=== PATIENT | female | born 1960 | race Two or more races ===

== ENCOUNTER 2017-08-12 20:11 | Emergency (ER) | payer MEDICAID ==
[~2017-08-12] VITALS: Ht 172.7 cm; Wt 103.1 kg
[2017-08-12 20:22] VITALS: BP 133/85
== END 2017-08-12 21:04 | disposition home or self-care (01) ==
LOC: ED 20:58
DX: K02.9 Dental caries, unspecified (principal); K08.89 Other specified disorders of teeth and supporting structures; I10 Essential (primary) hypertension
CPT/HCPCS: 99283